=== PATIENT | male | born 1945 | race Caucasian/White ===

== ENCOUNTER 2022-10-08 07:25 | Day surgery (SDC) | payer MEDICARE, OTHER ==
[2022-10-08] VITALS (13 sets, daily range): BP systolic 104–137; BP diastolic 47–95
[~2022-10-08] VITALS: Ht 185.5 cm; Wt 90.0 kg
[2022-10-08 07:59] LABS: HEMATOCRIT 22 % (40-54)
[2022-10-08 08:01] LABS: ABSOLUTE RETIC # 76 10e9/uL (24-90); BASOPHILS % (AUTO) 0 % (0-10); EOSINOPHILS # (AUTO) 0.1 10^3/uL (0.0-0.3); EOSINOPHILS % (AUTO) 1 % (0-10); HEMOGLOBIN 7.6 g/dL (13.3-17.7); LYMPHOCYTES # (AUTO) 2.6 10^3/uL (1.0-4.0); LYMPHOCYTES % (AUTO) 17 % (12-44); MEAN CORPUSCULAR HEMOGLOBIN 32 pg (25-34); MEAN CORPUSCULAR HGB CONC 35 g/dL (32-36); MEAN CORPUSCULAR VOLUME 92 fL (80-99); MEAN PLATELET VOLUME 9.6 fL (9.0-12.2); MONOCYTES # (AUTO) 11.5 10^3/uL (0.0-1.0); MONOCYTES % (AUTO) 74 % (0-12); NEUTROPHILS # (AUTO) 0.8 10^3/uL (1.8-7.8); NEUTROPHILS % (AUTO) 5 % (42-75); RETICULOCYTE % 3.18 % (0.50-2.40); WHITE BLOOD COUNT 15.5 10^3/uL (4.3-11.0)
[2022-10-08 08:13] LABS: PLATELET COUNT 42 10^3/uL (130-400)
[2022-10-08] MEDS ORDERED: NS IV 1000 ML 1,000 ML IV STA (08:13)
[2022-10-08] MEDS ORDERED: LIDOCAINE 1% INJ 30 ML (XYLOCAINE) VIAL INJ ONE (08:15)
[2022-10-08] MEDS ORDERED: MIDAZOLAM 2 MG/2 ML (VERSED) VIAL IVP ONE (08:15)
[2022-10-08] MEDS ORDERED: fentaNYL INJ 100 MCG/2 ML AMP IVP ONE (08:15)
[2022-10-08 08:19] LABS: INR 1.3 (0.8-1.4); PROTHROMBIN TIME PATIENT 16.9 SEC (12.2-14.7)
[2022-10-08 09:06] LABS: BAND NEUTROPHILS 0 %; BASOPHILS % (MANUAL) 0 %; EOSINOPHILS % (MANUAL) 0 %; LYMPHOCYTES % (MANUAL) 27 %; MONOCYTES % (MANUAL) 3 %; NEUTROPHILS % (MANUAL) 8 %; NUCLEATED RED BLOOD CELLS 5
[2022-10-08 09:07] LABS: ATYPICAL LYMPHOCYTES 62 %
[2022-10-08] MEDS ORDERED: HYDROcodone/APAP 5 MG/325 MG (LORTAB) TAB PO PRN (10:15)
[2022-10-08] MEDS ORDERED: CIPR500T5 PO (10:29)
[2022-10-08] MEDS ORDERED: ONDA8TAB13 SL (10:29)
[2022-10-08] MEDS ORDERED: OMEP20TA56 PO (10:29)
[2022-10-08] MEDS ORDERED: TMSL.4C PO (10:29)
[2022-10-08] MEDS ORDERED: METF-397 PO (10:29)
--- NOTE | 2022-10-08 10:34 | Pre-Op Note & Conscious Sedat ---
Pre-Operative Progress Note Date of Available H&P: Oct 08, 2022 Date H&P Reviewed: Oct 08, 2022 Time H&P Reviewed: 09:00 Pre-Op Diagnosis: leukemia Conscious Sedation Pre-Proced Time 09:00 ASA Score 2 For ASA 3 and 4: Consider anesthesia and medical clearance. Also, for patients with a history of failed moderate sedation consider anesthesia. Airway Lungs Heart ASA score ASA 1: a normal healthy patient ASA 2: a patient with a mild systemic disease (mid diabetes, controlled hypertension, obesity ASA 3: a patient with a severe systemic disease that limits activity (angina, COPD, prior Myocardial infarction) ASA 4: a patient with an incapacitating disease that is a constant threat to life (CHF, renal failure) ASA 5: a moribund patient not expected to survive 24 hrs. (ruptured aneurysm) ASA 6: a declared brain- patient whose organs are being harvested. For emergent operations, add the letter E after the classification Mallampati Classification Grade 2 Sedation Plan Analgesia, Amnesia, Plan communicated to team members, Discussed options with patient/fam, Discussed risks with patient/fam The patient is an appropriate candidate to undergo the planned procedure, sedation, and anesthesia. The patient immediately re-assessed prior to indication. HAYLIE ARIAS MD Oct 08, 2022 10:34
--- NOTE | 2022-10-08 12:17 | Diagnostic Imaging Report ---
INDICATION: Acute leukemia. PROCEDURE: The patient presents for CT-guided bone marrow aspiration and biopsy. The patient was brought to the CT suite, placed on the table in the prone position. Axial imaging through the pelvis was performed to evaluate an appropriate entry site. Low back was prepped and draped in the usual sterile fashion. A small amount 1% lidocaine was utilized for local anesthesia. Study was performed utilizing conscious sedation with radiology nursing and constant patient monitoring. Patient was given a total of 50 mcg of fentanyl intravenously and 1 mg of Versed intravenously. Total procedure time was approximately 8 minutes. Bone marrow needle was advanced, placed with its tip along the posterior cortex of the right iliac bone. Bone marrow drill was utilized to place the needle through the cortex into the marrow. Aspirates were attempted however the tap was essentially dry with blood clotting immediately. Therefore, a core biopsy was obtained utilizing the bone marrow drill. The needle was repositioned and a second core biopsy was obtained. Hemostasis was obtained using manual compression. Patient tolerated the procedure well and left the department in stable condition. IMPRESSION: CT guided bone marrow core biopsies, utilizing conscious sedation, as described. Pathology results are currently pending. Dictated by: Dictated on workstation # [id number]
== END 2022-10-08 12:15 | disposition home or self-care (01) ==
LOC: RAD 07:25 → SDC 09:51 → RAD 12:15
PROVIDERS: ATTEND Internal Medicine Hematology & Oncology
DX: C92.00 Acute myeloblastic leukemia, not having achieved remission (principal)
CPT/HCPCS: 36415; 38222; 77012; 85007; 85027; 85045; 85610; 85730; 88305; 88311; 88313; 99156